=== PATIENT | male | born 1975 | race Two or more races ===

== ENCOUNTER 2020-09-24 03:04 | Inpatient (IN) | payer OTHER ==
[~2020-09-24] VITALS: Ht 170.2 cm; Wt 88.5 kg
[2020-09-24] MEDS ORDERED: SODIUM CHLORIDE 0.9% 1,000 ML IV ONE ×3 (03:15→06:30)
[2020-09-24 03:41] LABS: BASOPHILS % (AUTO) 0.8 % (0.0-2.0); EOSINOPHILS % (AUTO) 0.1 % (1.0-6.0); HEMATOCRIT 41.2 % (41-53); HEMOGLOBIN 10.1 g/dL (13.5-17.5); LYMPHOCYTES # (AUTO) 0.7 K/uL (1.0-4.8); LYMPHOCYTES % (AUTO) 6.6 % (22.0-44.0); MEAN CORPUSCULAR HEMOGLOBIN 31.6 pg (26.0-34.0); MEAN CORPUSCULAR HGB CONC 24.6 G/dL (31.0-37.0); MEAN CORPUSCULAR VOLUME 129 fL (80-100); MONOCYTES # (AUTO) 0.5 K/uL (0.1-1.0); MONOCYTES % (AUTO) 4.3 % (2.0-9.0); NEUTROPHILS # (AUTO) 9.8 K/uL (1.8-7.7); PLATELET COUNT (AUTO) 315 K/uL (150-450); RED BLOOD CELL COUNT(AUTO) 3.21 MIL/uL (4.50-5.90); RED CELL DISTRIBUTION WIDTH 15.5 % (11.5-14.5)
[2020-09-24 03:50] LABS: NEUTROPHILS % (AUTO) 88.2 % (40.0-70.0)
[2020-09-24 03:54] LABS: INR 0.9 (0.9-1.1); PROTHROMBIN TIME 9.9 SEC (9.4-11.6)
[2020-09-24 04:05] LABS: AMMONIA 24 umol/L (11-32)
[2020-09-24 04:16] LABS: ALANINE AMINOTRANSFERASE 23 U/L (12-78); ALKALINE PHOSPHATASE 155 U/L (46-116); ASPARTATE AMINOTRANSFERASE 31 U/L (15-37); BILIRUBIN,TOTAL 0.5 mg/dL (0.1-1.0); CALCIUM, TOTAL 8.7 mg/dL (8.8-10.5); CHLORIDE 87 mmol/L (98-107); CREATINE KINASE, TOTAL ONLY 40 U/L (39-308); CREATININE 2.88 mg/dL (0.60-1.30); GLOMERULAR FILTR. RATE CALC 24 mL/min (>60); SODIUM SERUM 127 mmol/L (136-145); TOTAL PROTEIN, SERUM 5.7 g/dL (6.4-8.2); UREA NITROGEN, BLOOD 47 mg/dL (7-18)
[2020-09-24 04:24] LABS: TROPONIN I < 0.02 ng/mL (0.00-0.05)
[2020-09-24 04:26] LABS: ANION GAP 23 mmol/L (8-16)
[2020-09-24 04:29] LABS: GLUCOSE,RANDOM 1453 mg/dL (70-110); POTASSIUM 7.6 mmol/L (3.5-5.1)
[2020-09-24 04:30] LABS: CARBON DIOXIDE 17 mmol/L (22-29); LACTIC ACID 4.5 mmol/L (0.4-2.0)
[2020-09-24 04:30] LABS: COVID AG,FIA SOURCE NASAL SWAB
[2020-09-24] MEDS ORDERED: INSULIN REGULAR, HUMAN 100 UNITS/ML IVP ONE ×2 (04:30→05:45)
[2020-09-24] MEDS ORDERED: CALCIUM GLUCONATE 0.465 MEQ/ML 10 ML VIAL IVP ONE ×3 (04:30→05:45)
[2020-09-24] MEDS ORDERED: POTASSIUM CHL 20 MEQ/0.45% NS 1,000 ML IV PRN ×2 (04:30→05:00)
[2020-09-24] MEDS ORDERED: INSULIN REGULAR, HUMAN 100 UNITS in SODIUM CHLORIDE 0.9% 99 ML IV PRN ×2 (04:30)
[2020-09-24] MEDS ORDERED: VANCOMYCIN HCL 1 GM/D5% WATER 200 ML IV ONE (04:30)
[2020-09-24] MEDS ORDERED: ONDANSETRON HCL 4 MG/2 ML VIAL IVP ONE (04:30)
[2020-09-24] MEDS ORDERED: INSULIN REGULAR, HUMAN 100 UNITS/ML IVP PRN ×2 (04:30→11:30)
[2020-09-24] MEDS ORDERED: POTASSIUM CHLORIDE 40 MEQ in SODIUM CHLORIDE 0.45% 1,000 ML IV PRN ×2 (04:30→05:00)
[2020-09-24] MEDS ORDERED: DEXTROSE 50%-WATER 25 GM/50 ML SYRINGE IVP PRN ×2 (04:30→05:00)
[2020-09-24] MEDS ORDERED: SODIUM CHLORIDE 0.9% 1,000 ML IV SCH ×3 (04:30→22:30)
[2020-09-24] MEDS ORDERED: ALBUTEROL SULFATE 5 MG/ML 20 ML NEB SOLN [BULK] NEB ONE (04:30)
[2020-09-24] MEDS ORDERED: SODIUM CHLORIDE 0.45% 1,000 ML IV PRN ×2 (04:30→05:00)
[2020-09-24] MEDS ORDERED: DEXTROSE 5%-0.45% SODIUM CHL 1,000 ML IV PRN (04:30)
[2020-09-24] MEDS ORDERED: PIPERACILLIN SODIUM/TAZOBACTAM 4.5 GM in DEXTROSE 5%-WATER 100 ML IV ONE (04:30)
[2020-09-24 04:34] LABS: ABG METHEMOGLOBIN 0.4 % (0.0-1.5); ABG OXYHEMOGLOBIN 97.4 % (94.0-100.0); SOURCE, BLOOD GAS ARTERIAL
[2020-09-24 04:40] LABS: ABG A-A DIFF O2 13.2 mmHg (10-20.0); ABG BASE EXCESS -29.7 mmol/L (-2.0-3.0); ABG CARBOXYHEMOGLOBIN 0.3 % (0.0-1.5); ABG OXYGEN CONTENT 14.4 mL/dL (15.0-23.0); ABG OXYGEN SATURATION 98.1 % (95.0-98.0); ABG TOTAL HEMOGLOBIN 10.3 G/dL (12.0-18.0); PO2, ARTERIAL BG 130.5 mmHg (88.0-96.0)
[2020-09-24 04:40] LABS: APPEARANCE,URINE CLEAR (CLEAR); BILIRUBIN,URINE NEGATIVE (NEGATIVE); GLUCOSE, URINE (UA) >=1000 mg/dL (NEGATIVE); KETONES,URINE >=80 mg/dL (NEGATIVE); LEUKOCYTE ESTERASE ,URINE NEGATIVE (NEGATIVE); NITRATE,URINE NEGATIVE (NEGATIVE); OCCULT BLOOD,URINE TRACE (NEGATIVE); PROTEIN,URINE POS 1+ (NEGATIVE); UROBILINOGEN,URINE 0.2 mg/dL (<=1.0)
[2020-09-24 04:41] LABS: ABG HCO3 5.1 mmol/L (22.0-26.0); ABG PCO2 7 mmHg (35-45); ABG PH 7.032 (7.35-7.450); O2 DEVICE,BLOOD GAS ROOM AIR (ROOM AIR); SITE, BLOOD GAS RT RADIAL
[2020-09-24 04:45] LABS: AMPHET/METH SCREEN,URINE NEGATIVE (NEGATIVE); BARBITURATE SCREEN, URINE NEGATIVE (NEGATIVE); BENZODIAZEPINES SCREEN,URINE NEGATIVE (NEGATIVE); CANNABINOID SCREEN,URINE POSITIVE (NEGATIVE); COCAINE SCREEN,URINE NEGATIVE (NEGATIVE); METHADONE SCREEN, URINE NEGATIVE (NEGATIVE); OPIATE SCREEN,URINE NEGATIVE (NEGATIVE)
[2020-09-24 04:50] LABS: PHENCYCLIDINE SCREEN,URINE NEGATIVE (NEGATIVE)
[2020-09-24 04:51] LABS: BACTERIA,URINE Rare /HPF (None Seen); RBC,URINE 0-2 /HPF (0-2); SQUAMOUS EPITHELIAL CELL,UR Rare /LPF (None Seen); WBC,URINE 0-2 /HPF (0-5)
[2020-09-24] MEDS ORDERED: ACETAMINOPHEN 325 MG TABLET PO PRN (05:00)
[2020-09-24 05:16] LABS: CHLORIDE 91 mmol/L (98-107); CREATININE 2.82 mg/dL (0.60-1.30); GLOMERULAR FILTR. RATE CALC 25 mL/min (>60); SODIUM SERUM 127 mmol/L (136-145); UREA NITROGEN, BLOOD 47 mg/dL (7-18)
[2020-09-24 05:30] LABS: ANION GAP 31 mmol/L (8-16)
[2020-09-24 05:35] LABS: CARBON DIOXIDE < 5 mmol/L (22-29); GLUCOSE,RANDOM 1420 mg/dL (70-110); POTASSIUM 7.7 mmol/L (3.5-5.1)
[2020-09-24] MEDS ORDERED: SODIUM POLYSTYRENE SULFONATE 15 GM/60 ML SUSPENSION BOTTLE PO ONE (05:45)
[2020-09-24 05:47] LABS: SALICYLATE 7.5 mg/dL (2.8-20.0)
[2020-09-24 05:52] LABS: ACETAMINOPHEN < 2 mcg/mL (10-30)
[2020-09-24 05:56] LABS: IRON, SERUM < 5 mcg/dL (50-175)
[2020-09-24 06:11] LABS: TOTAL IRON BINDING CAPACITY < 36 mcg/dL (250-450)
[2020-09-24] MEDS ORDERED: 0.9% SODIUM CHLORIDE 5 ML NEB SOLUTION NEB ONE (06:25)
[2020-09-24] MEDS: FAMOTIDINE 10 MG/ML 2 ML VIAL IVP SCH (06:40)
[2020-09-24 07:02] LABS: CALCIUM, TOTAL 8.1 mg/dL (8.8-10.5); CHLORIDE 91 mmol/L (98-107); CREATININE 2.78 mg/dL (0.60-1.30); GLOMERULAR FILTR. RATE CALC 25 mL/min (>60); SODIUM SERUM 127 mmol/L (136-145); UREA NITROGEN, BLOOD 46 mg/dL (7-18)
[2020-09-24 07:23] LABS: ANION GAP 31 mmol/L (8-16)
[2020-09-24 07:24] LABS: CARBON DIOXIDE < 5 mmol/L (22-29); GLUCOSE,RANDOM 1410 mg/dL (70-110); POTASSIUM 7.5 mmol/L (3.5-5.1)
[2020-09-24 07:48] LABS: CALCIUM, TOTAL 7.7 mg/dL (8.8-10.5); CHLORIDE 94 mmol/L (98-107); CREATININE 2.82 mg/dL (0.60-1.30); GLOMERULAR FILTR. RATE CALC 25 mL/min (>60); POTASSIUM 5.4 mmol/L (3.5-5.1); SODIUM SERUM 129 mmol/L (136-145); UREA NITROGEN, BLOOD 48 mg/dL (7-18)
[2020-09-24] MEDS ORDERED: HEPARIN SODIUM,PORCINE 5,000 UNITS/ML VIAL SQ SCH (08:00)
[2020-09-24 08:07] LABS: ANION GAP 30 mmol/L (8-16)
[2020-09-24 08:08] LABS: CARBON DIOXIDE < 5 mmol/L (22-29)
[2020-09-24 08:16] LABS: GLUCOSE,RANDOM 1361 mg/dL (70-110)
[2020-09-24 10:02] LABS: CALCIUM, TOTAL 7.7 mg/dL (8.8-10.5); CHLORIDE 98 mmol/L (98-107); GLOMERULAR FILTR. RATE CALC 26 mL/min (>60); POTASSIUM 4.7 mmol/L (3.5-5.1); SODIUM SERUM 134 mmol/L (136-145); UREA NITROGEN, BLOOD 47 mg/dL (7-18)
[2020-09-24 10:11] LABS: ANION GAP 31 mmol/L (8-16)
[2020-09-24 10:14] LABS: CARBON DIOXIDE < 5 mmol/L (22-29); GLUCOSE,RANDOM 1402 mg/dL (70-110)
[2020-09-24 10:34] VITALS: BP 104/47
[2020-09-24 10:50] LABS: CALCIUM, TOTAL 7.7 mg/dL (8.8-10.5); CHLORIDE 98 mmol/L (98-107); CREATININE 3.03 mg/dL (0.60-1.30); GLOMERULAR FILTR. RATE CALC 23 mL/min (>60); POTASSIUM 4.1 mmol/L (3.5-5.1); SODIUM SERUM 133 mmol/L (136-145); UREA NITROGEN, BLOOD 47 mg/dL (7-18)
[2020-09-24 11:18] LABS: ANION GAP 30 mmol/L (8-16)
[2020-09-24 11:21] LABS: CARBON DIOXIDE < 5 mmol/L (22-29); GLUCOSE,RANDOM 1171 mg/dL (70-110)
[2020-09-24 12:00] VITALS: BP 107/51
[2020-09-24 12:14] LABS: CALCIUM, TOTAL 6.8 mg/dL (8.8-10.5); CHLORIDE 99 mmol/L (98-107); CREATININE 2.59 mg/dL (0.60-1.30); GLOMERULAR FILTR. RATE CALC 27 mL/min (>60); POTASSIUM 3.6 mmol/L (3.5-5.1); SODIUM SERUM 132 mmol/L (136-145); UREA NITROGEN, BLOOD 42 mg/dL (7-18)
[2020-09-24 12:23] LABS: ANION GAP 28 mmol/L (8-16)
[2020-09-24 12:24] LABS: CARBON DIOXIDE < 5 mmol/L (22-29); GLUCOSE,RANDOM 941 mg/dL (70-110)
[2020-09-24] MEDS: INSULIN REGULAR, HUMAN 100 UNITS/ML IVP PRN (12:48)
[2020-09-24 13:30] LABS: CALCIUM, TOTAL 7.9 mg/dL (8.8-10.5); CHLORIDE 102 mmol/L (98-107); CREATININE 2.94 mg/dL (0.60-1.30); GLOMERULAR FILTR. RATE CALC 23 mL/min (>60); POTASSIUM 3.9 mmol/L (3.5-5.1); SODIUM SERUM 138 mmol/L (136-145); UREA NITROGEN, BLOOD 46 mg/dL (7-18)
[2020-09-24 14:05] LABS: ANION GAP 31 mmol/L (8-16)
[2020-09-24 14:09] LABS: CARBON DIOXIDE < 5 mmol/L (22-29); GLUCOSE,RANDOM 968 mg/dL (70-110)
[2020-09-24 15:37] LABS: PHOSPHORUS 4.1 mg/dL (2.5-4.9)
[2020-09-24 16:00] VITALS: BP 106/60
[2020-09-24] MEDS: INSULIN REGULAR, HUMAN 100 UNITS in SODIUM CHLORIDE 0.9% 99 ML IV PRN ×4 (16:06→21:13)
[2020-09-24 16:44] LABS: CALCIUM, TOTAL 8.2 mg/dL (8.8-10.5); CREATININE 2.86 mg/dL (0.60-1.30); POTASSIUM 3.4 mmol/L (3.5-5.1)
[2020-09-24 18:52] LABS: GLUCOSE,POINT OF CARE 217 MG/DL (70-110)
[2020-09-24] MEDS: ONDANSETRON HCL 4 MG/2 ML VIAL IVP PRN (19:40)
[2020-09-24] MEDS: POTASSIUM CHL 10 MEQ/WATER 50 ML IV SCH ×2 (19:40→20:58)
[2020-09-24] MEDS ORDERED: SODIUM CHLORIDE 0.9% 250 ML IV ONE (19:51)
[2020-09-24 21:42] LABS: CALCIUM, TOTAL 8.1 mg/dL (8.8-10.5); CREATININE 2.51 mg/dL (0.60-1.30); POTASSIUM 4.1 mmol/L (3.5-5.1)
[2020-09-24 23:50] LABS: GLUCOSE,POINT OF CARE 91 MG/DL (70-110)
[2020-09-25] VITALS: BP 139/77
[2020-09-25 00:07] LABS: GLUCOSE,POINT OF CARE 84 MG/DL (70-110)
[2020-09-25 00:07] LABS: GLUCOSE,POINT OF CARE 125 MG/DL (70-110)
[2020-09-25 00:07] LABS: GLUCOSE,POINT OF CARE 185 MG/DL (70-110)
[2020-09-25 00:07] LABS: GLUCOSE,POINT OF CARE 145 MG/DL (70-110)
[2020-09-25 01:13] LABS: CALCIUM, TOTAL 8.1 mg/dL (8.8-10.5); CREATININE 2.47 mg/dL (0.60-1.30)
[2020-09-25 02:18] LABS: GLUCOSE,POINT OF CARE 154 MG/DL (70-110)
[2020-09-25 02:18] LABS: GLUCOSE,POINT OF CARE 208 MG/DL (70-110)
[2020-09-25 04:00] VITALS: BP 141/67
[2020-09-25 04:15] LABS: GLUCOSE,POINT OF CARE 222 MG/DL (70-110)
[2020-09-25 04:15] LABS: GLUCOSE,POINT OF CARE 197 MG/DL (70-110)
[2020-09-25] MEDS: ONDANSETRON HCL 4 MG/2 ML VIAL IVP PRN ×2 (04:26→16:52)
[2020-09-25 05:18] LABS: GLUCOSE,POINT OF CARE 159 MG/DL (70-110)
[2020-09-25 06:13] LABS: GLUCOSE,POINT OF CARE 147 MG/DL (70-110)
[2020-09-25 06:44] LABS: ALBUMIN 2.5 g/dL (3.4-5.0); BILIRUBIN,TOTAL 0.2 mg/dL (0.1-1.0); CREATININE 2.58 mg/dL (0.60-1.30); MAGNESIUM 1.8 mg/dL (1.80-2.40); PHOSPHORUS 2.1 mg/dL (2.5-4.9); POTASSIUM 5.2 mmol/L (3.5-5.1); TOTAL PROTEIN, SERUM 5.3 g/dL (6.4-8.2)
[2020-09-25 07:12] LABS: GLUCOSE,POINT OF CARE 147 MG/DL (70-110)
[2020-09-25 08:00] VITALS: BP 144/89
[2020-09-25 08:42] LABS: GLUCOSE,POINT OF CARE 135 MG/DL (70-110)
[2020-09-25] MEDS: FAMOTIDINE 10 MG/ML 2 ML VIAL IVP SCH (09:06)
[2020-09-25] MEDS ORDERED: SODIUM PHOS,M-BASIC-D-BASIC 30 MMOL in DEXTROSE 5%-WATER 250 ML IV ONE (09:30)
[2020-09-25 10:35] LABS: GLUCOSE,POINT OF CARE 134 MG/DL (70-110)
[2020-09-25] MEDS: DEXTROSE 5%-0.45% SODIUM CHL 1,000 ML IV PRN ×2 (10:37→20:16)
[2020-09-25 12:00] VITALS: BP 142/80
[2020-09-25 14:35] LABS: GLUCOSE,POINT OF CARE 154 MG/DL (70-110)
[2020-09-25 14:35] LABS: GLUCOSE,POINT OF CARE 141 MG/DL (70-110)
[2020-09-25 14:35] LABS: GLUCOSE,POINT OF CARE 130 MG/DL (70-110)
[2020-09-25 16:00] VITALS: BP 116/76
[2020-09-25 16:42] LABS: CALCIUM, TOTAL 7.8 mg/dL (8.8-10.5); CREATININE 2.4 mg/dL (0.60-1.30); MAGNESIUM 1.8 mg/dL (1.80-2.40); PHOSPHORUS 4.7 mg/dL (2.5-4.9); POTASSIUM 4.4 mmol/L (3.5-5.1)
[2020-09-25 17:16] LABS: GLUCOSE,POINT OF CARE 141 MG/DL (70-110)
[2020-09-25 20:16] LABS: GLUCOSE,POINT OF CARE 248 MG/DL (70-110)
[2020-09-25 21:17] LABS: GLUCOSE,POINT OF CARE 249 MG/DL (70-110)
[2020-09-25] MEDS: INSULIN REGULAR, HUMAN 100 UNITS/ML IVP PRN ×2 (22:22→23:02)
[2020-09-25 23:16] LABS: GLUCOSE,POINT OF CARE 305 MG/DL (70-110)
[2020-09-25 23:16] LABS: GLUCOSE,POINT OF CARE 370 MG/DL (70-110)
[2020-09-26] VITALS (10 sets, daily range): BP systolic 150–193; BP diastolic 86–115
[2020-09-26 00:08] LABS: GLUCOSE,POINT OF CARE 191 MG/DL (70-110)
[2020-09-26 01:01] LABS: GLUCOSE,POINT OF CARE 141 MG/DL (70-110)
[2020-09-26] MEDS: MORPHINE SULFATE 2 MG/ML SYRINGE IVP PRN ×3 (02:13→21:58)
[2020-09-26 03:15] LABS: GLUCOSE,POINT OF CARE 140 MG/DL (70-110)
[2020-09-26 03:15] LABS: GLUCOSE,POINT OF CARE 134 MG/DL (70-110)
[2020-09-26 03:20] LABS: BASOPHILS % (AUTO) 0.8 % (0.0-2.0); EOSINOPHILS % (AUTO) 0.7 % (1.0-6.0); HEMATOCRIT 24.8 % (41-53); HEMOGLOBIN 8.3 g/dL (13.5-17.5); LYMPHOCYTES # (AUTO) 1.8 K/uL (1.0-4.8); LYMPHOCYTES % (AUTO) 17.2 % (22.0-44.0); MEAN CORPUSCULAR HEMOGLOBIN 31.5 pg (26.0-34.0); MEAN CORPUSCULAR HGB CONC 33.5 G/dL (31.0-37.0); MEAN CORPUSCULAR VOLUME 94 fL (80-100); MONOCYTES # (AUTO) 0.5 K/uL (0.1-1.0); NEUTROPHILS # (AUTO) 8.1 K/uL (1.8-7.7); NEUTROPHILS % (AUTO) 76.3 % (40.0-70.0); PLATELET COUNT (AUTO) 193 K/uL (150-450); RED BLOOD CELL COUNT(AUTO) 2.64 MIL/uL (4.50-5.90); RED CELL DISTRIBUTION WIDTH 14.8 % (11.5-14.5)
[2020-09-26 03:32] LABS: CALCIUM, TOTAL 7.6 mg/dL (8.8-10.5); CREATININE 2.25 mg/dL (0.60-1.30); MAGNESIUM 1.8 mg/dL (1.80-2.40); PHOSPHORUS 3.2 mg/dL (2.5-4.9); POTASSIUM 4.2 mmol/L (3.5-5.1)
[2020-09-26 04:09] LABS: GLUCOSE,POINT OF CARE 152 MG/DL (70-110)
[2020-09-26 06:13] LABS: GLUCOSE,POINT OF CARE 151 MG/DL (70-110)
[2020-09-26] MEDS: DEXTROSE 5%-0.45% SODIUM CHL 1,000 ML IV PRN ×2 (06:22→18:30)
[2020-09-26 07:28] LABS: GLUCOSE,POINT OF CARE 152 MG/DL (70-110)
[2020-09-26] MEDS ORDERED: DEXTROSE 50%-WATER 25 GM/50 ML SYRINGE IVP PRN (08:00)
[2020-09-26] MEDS: FAMOTIDINE 10 MG/ML 2 ML VIAL IVP SCH (08:12)
[2020-09-26] MEDS: HEPARIN SODIUM,PORCINE 5,000 UNITS/ML VIAL SQ SCH ×2 (08:13→21:04)
[2020-09-26 10:24] LABS: GLUCOSE,POINT OF CARE 109 MG/DL (70-110)
[2020-09-26 11:22] LABS: CALCIUM, TOTAL 7.7 mg/dL (8.8-10.5); CREATININE 1.88 mg/dL (0.60-1.30); POTASSIUM 4.4 mmol/L (3.5-5.1)
[2020-09-26 14:48] LABS: GLUCOSE,POINT OF CARE 199 MG/DL (70-110)
[2020-09-26 15:28] LABS: GLUCOSE,POINT OF CARE 234 MG/DL (70-110)
[2020-09-26 15:28] LABS: GLUCOSE,POINT OF CARE 135 MG/DL (70-110)
[2020-09-26] MEDS: ONDANSETRON HCL 4 MG/2 ML VIAL IVP PRN (16:12)
[2020-09-26 19:19] LABS: GLUCOSE,POINT OF CARE 333 MG/DL (70-110)
[2020-09-26 19:19] LABS: GLUCOSE,POINT OF CARE 246 MG/DL (70-110)
[2020-09-26 20:07] LABS: GLUCOSE,POINT OF CARE 225 MG/DL (70-110)
[2020-09-26] MEDS ORDERED: INSULIN GLARGINE,HUM.REC.ANLOG 100 UNITS/ML SQ SCH (21:45)
[2020-09-26] MEDS ORDERED: NiCARDipine HCL 25 MG in SODIUM CHLORIDE 0.9% 240 ML IV PRN (21:45)
[2020-09-26] MEDS ORDERED: MELATONIN 5 MG TABLET PO PRN (22:00)
[2020-09-26] MEDS ORDERED: LABETALOL HCL 100 MG TABLET PO SCH (22:00)
[2020-09-27] VITALS (7 sets, daily range): BP systolic 135–160; BP diastolic 84–104
[2020-09-27 00:07] LABS: GLUCOSE,POINT OF CARE 184 MG/DL (70-110)
[2020-09-27 02:13] LABS: GLUCOSE,POINT OF CARE 56 MG/DL (70-110)
[2020-09-27 02:13] LABS: GLUCOSE,POINT OF CARE 124 MG/DL (70-110)
[2020-09-27 02:17] LABS: GLUCOSE,POINT OF CARE 99 MG/DL (70-110)
[2020-09-27 02:17] LABS: GLUCOSE,POINT OF CARE 121 MG/DL (70-110)
[2020-09-27 02:17] LABS: GLUCOSE,POINT OF CARE 139 MG/DL (70-110)
[2020-09-27 03:45] LABS: GLUCOSE,POINT OF CARE 85 MG/DL (70-110)
[2020-09-27 06:20] LABS: CALCIUM, TOTAL 7.8 mg/dL (8.8-10.5); CREATININE 1.65 mg/dL (0.60-1.30); POTASSIUM 4.3 mmol/L (3.5-5.1)
[2020-09-27] MEDS ORDERED: INSULIN GLARGINE,HUM.REC.ANLOG 100 UNITS/ML SQ SCH ×3 (07:00→21:00)
[2020-09-27 07:09] LABS: GLUCOSE,POINT OF CARE 85 MG/DL (70-110)
[2020-09-27 07:10] LABS: GLUCOSE,POINT OF CARE 110 MG/DL (70-110)
[2020-09-27] MEDS ORDERED: CloNIDine HCL 0.1 MG TABLET PO PRN (07:45)
[2020-09-27] MEDS: HEPARIN SODIUM,PORCINE 5,000 UNITS/ML VIAL SQ SCH ×2 (09:23→20:10)
[2020-09-27] MEDS: FAMOTIDINE 10 MG/ML 2 ML VIAL IVP SCH (09:23)
[2020-09-27 11:57] LABS: GLUCOSE,POINT OF CARE 127 MG/DL (70-110)
[2020-09-27 12:14] LABS: GLUCOSE,POINT OF CARE 70 MG/DL (70-110)
[2020-09-27 12:14] LABS: GLUCOSE,POINT OF CARE 112 MG/DL (70-110)
[2020-09-27] MEDS: MORPHINE SULFATE 2 MG/ML SYRINGE IVP PRN ×2 (14:18→20:23)
[2020-09-27] MEDS: INSULIN LISPRO 100 UNITS/ML SQ PRN ×2 (17:19→20:11)
[2020-09-27 17:47] LABS: GLUCOMETER DEV NAME(LOC) 6N.1; GLUCOSE,POINT OF CARE 317 MG/DL (70-110)
[2020-09-28 07:58] LABS: GLUCOMETER DEV NAME(LOC) 6N.1; GLUCOSE,POINT OF CARE 155 MG/DL (70-110)
== END 2020-09-27 20:30 | disposition short-term general hospital (02) | DRG 637 ==
LOC: EMS 03:08 → ICU 04:54 → 6N 09-27 12:40
PROVIDERS: ADMIT Internal Medicine; ATTEND Internal Medicine
DX: E11.10 Type 2 diabetes mellitus with ketoacidosis without coma (principal); G93.41 Metabolic encephalopathy; E43 Unspecified severe protein-calorie malnutrition; N17.9 Acute kidney failure, unspecified; E87.0 Hyperosmolality and hypernatremia; E11.00 Type 2 diabetes mellitus with hyperosmolarity without nonketotic hyperglycemic-hyperosmolar coma (NKHHC); E11.51 Type 2 diabetes mellitus with diabetic peripheral angiopathy without gangrene; E11.22 Type 2 diabetes mellitus with diabetic chronic kidney disease; E86.0 Dehydration; I12.9 Hypertensive chronic kidney disease with stage 1 through stage 4 chronic kidney disease, or unspecified chronic kidney disease; N18.9 Chronic kidney disease, unspecified; D64.9 Anemia, unspecified; E87.5 Hyperkalemia; I16.0 Hypertensive urgency; D63.8 Anemia in other chronic diseases classified elsewhere; E11.40 Type 2 diabetes mellitus with diabetic neuropathy, unspecified; F32.9 Major depressive disorder, single episode, unspecified; Z20.822 Contact with and (suspected) exposure to COVID-19; K80.20 Calculus of gallbladder without cholecystitis without obstruction; Z91.14 Patient's other noncompliance with medication regimen; Z91.19 Patient's noncompliance with other medical treatment and regimen; Z79.4 Long term (current) use of insulin; Z89.511 Acquired absence of right leg below knee; Z89.422 Acquired absence of other left toe(s); Z79.899 Other long term (current) drug therapy; Z68.30 Body mass index [BMI] 30.0-30.9, adult
CPT/HCPCS: 51702; 70450; 70544; 70551; 71045; 74176; 76770; 80048; 80053; 81001; 82009; 82140; 82550; 82805; 82962; 83540; 83550; 83605; 83735; 83930; 84100; 84443; 84484; 85025; 85610; 85730; 87040; 87081; 87086; 87426; 93005; 94644; 99291; 99292; A9575; G0378; G0480; G0481; J0610; J1644; J1815; J2270; J2405; J2543; J3370; J3480; J3490; J7030; J7050; J7060; 36415-L1; 36415-TC; J7611; U0003; X7700